=== PATIENT | female | born 1980 | race Caucasian/White ===

== ENCOUNTER 2016-12-04 18:39 | Emergency (ER) | payer OTHER ==
--- NOTE | 2016-12-04 19:08 | ED NURSING NOTES ---
Clinical Report - Nurses [facility] [address] [place] [address] 12/04/2016 18:40 Patient: CHANDANA MOFFETT TRIAGE Triage time 18:40 Dec 04 2016. Acuity: LEVEL 4. Chief Complaint: FEVER and SORE THROAT and SINUS CONGESTION and FATIGUE. 18:50 12/04/16. Alert. No acute distress. SEPSIS SCREEN: Sepsis Screen. Negative (no infection suspected/documented). DEMETRA COMA SCORE: [place] Coma Scale: 15- eyes open spontaneously (4); best verbal response- oriented x 4 (5); best motor response- obeys commands (6). --18:50 Julita Rodgers 18:50 12/04/16. BP: 136/87. HR: 114. RR: 18. O2 saturation: 98%. Temp: 99.1 F. Pain level now 8/10. --18:50 Julita Rodgers. Weight: 63.5 kg stated. Height/Length: 67 inches Per Patient. BMI: 21.9. --18:47 Julita Rodgers. Medications None. --18:47 Julita Rodgers. Medication/allergy information source: the patient. --18:50 Julita Rodgers. Allergies None. --18:47 Julita Rodgers. History Arrived by private vehicle. Historian: patient. Accompanied by family. Primary physician (Annette). ( Pt reports sore throat, fever, headache, and difficulty breathing (yesterday not today).). She has had chest congestion, chills, fatigue, sinus pain and a headache. She has had abdominal pain. The pain is described as generalized. No vomiting or diarrhea. No known contact with a sick individual. 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 PAST MEDICAL HX: No history of pneumonia, asthma, chronic obstructive pulmonary disease or diabetes mellitus. No history of immunocompromise or cancer. Immunizations: up-to-date. Last normal menstrual period was 2 weeks ago. SOCIAL HX: Never smoker. Occasional alcohol use. No drug use. No recent travel. FALL RISK ASSESSMENT: Fall risk assessment completed. No fall risk identified. NUTRITIONAL RISK ASSESSMENT: The nutritional risk assessment revealed no deficiencies. FUNCTIONAL ASSESSMENT: Functional assessment: no impairments noted. LEARNING NEEDS ASSESSMENT: The learning needs assessment revealed no barriers. SKIN INTEGRITY ASSESSMENT: Skin integrity risk assessment completed. No skin integrity risk identified. --18:50 Julita Rodgers. PROBLEMS: Skin Avulsion. Costochondritis. --18:48 Julita Rodgers. ADDITIONAL SURGERIES: Breast Augmentation. Vaginal cyst removal. --18:48 Julita Rodgers. Assessment The patient states feels the same. --18:50 Julita Rodgers. Interventions ID band on patient. --18:50 Julita Rodgers. PHYSICAL ASSESSMENT 18:50 12/04/16. Ambulatory to room. Patient gowned. GENERAL / NEURO / PSYCH: Alert. Oriented X 4. Appears in no acute distress. HEENT: Pupils equal, round and reactive to light. Mucous membranes are pink. RESPIRATORY: Respirations not labored. Chest nontender. CVS: Capillary refill less than 2 seconds. Pulses within normal limits. GI / : Abdomen soft and nontender. SKIN: Skin intact. Skin is warm and dry. Normal skin turgor. --18:50 Julita Rodgers. NURSING PROGRESS NOTES 18:50 12/04/16. The plan of care for this patient has been created. Head of bed elevated. Reassurance given. Two patient identifiers checked. Call light placed in reach. Side rails up x 1. Bed placed in lowest position. Brakes of bed on. Patient ready for evaluation- chart flagged and ED physician and NURSE OB notified. --18:50 Julita Rodgers. DISPOSITION / DISCHARGE 19:17 12/04/16. Departure time: :Dec 04 2016. Condition at departure: unchanged. The goals identified in the patient's plan of care were met. No learning barriers present. Discharge instructions provided and reviewed with the patient. Reviewed warnings (Patient verbalized awareness of warning s/sx listed in dc paperwork.). Reviewed medication(s). Prescription(s) given to the patient (Tylenol, ibuprofen.). Treatments reviewed. Reviewed referral to a primary care physician for followup. Patient verbalized understanding. Written instructions provided in French. The patient was discharged by the nurse practitioner. She was discharged home and accompanied by family. She left the Emergency Department ambulatory and via private vehicle. Family member driving. FALL RISK ASSESSMENT: Fall risk assessment completed. No fall risk identified. --19:17 Julita Rodgers 19:15 12/04/16. BP: deferred. HR: deferred. RR: deferred. O2 saturation: deferred. Temp: deferred. Pain level now deferred. --19:17 Julita Rodgers. Locked/Released at 12/04/2016 23:00 by Julita Rodgers,
--- NOTE | 2016-12-04 19:08 | ED NURSING NOTES ---
Clinical Report - Nurses [facility] [address] [place] [address] 12/04/2016 18:40 Patient: CHANDANA MOFFETT TRIAGE Triage time 18:40 Dec 04 2016. Acuity: LEVEL 4. Chief Complaint: FEVER and SORE THROAT and SINUS CONGESTION and FATIGUE. 18:50 12/04/16. Alert. No acute distress. SEPSIS SCREEN: Sepsis Screen. Negative (no infection suspected/documented). DEMETRA COMA SCORE: [place] Coma Scale: 15- eyes open spontaneously (4); best verbal response- oriented x 4 (5); best motor response- obeys commands (6). --18:50 Julita Rodgers 18:50 12/04/16. BP: 136/87. HR: 114. RR: 18. O2 saturation: 98%. Temp: 99.1 F. Pain level now 8/10. --18:50 Julita Rodgers. Weight: 63.5 kg stated. Height/Length: 67 inches Per Patient. BMI: 21.9. --18:47 Julita Rodgers. Medications None. --18:47 Julita Rodgers. Medication/allergy information source: the patient. --18:50 Julita Rodgers. Allergies None. --18:47 Julita Rodgers. History Arrived by private vehicle. Historian: patient. Accompanied by family. Primary physician (Annette). ( Pt reports sore throat, fever, headache, and difficulty breathing (yesterday not today).). She has had chest congestion, chills, fatigue, sinus pain and a headache. She has had abdominal pain. The pain is described as generalized. No vomiting or diarrhea. No known contact with a sick individual. 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 PAST MEDICAL HX: No history of pneumonia, asthma, chronic obstructive pulmonary disease or diabetes mellitus. No history of immunocompromise or cancer. Immunizations: up-to-date. Last normal menstrual period was 2 weeks ago. SOCIAL HX: Never smoker. Occasional alcohol use. No drug use. No recent travel. FALL RISK ASSESSMENT: Fall risk assessment completed. No fall risk identified. NUTRITIONAL RISK ASSESSMENT: The nutritional risk assessment revealed no deficiencies. FUNCTIONAL ASSESSMENT: Functional assessment: no impairments noted. LEARNING NEEDS ASSESSMENT: The learning needs assessment revealed no barriers. SKIN INTEGRITY ASSESSMENT: Skin integrity risk assessment completed. No skin integrity risk identified. --18:50 Julita Rodgers. PROBLEMS: Skin Avulsion. Costochondritis. --18:48 Julita Rodgers. ADDITIONAL SURGERIES: Breast Augmentation. Vaginal cyst removal. --18:48 Julita Rodgers. Assessment The patient states feels the same. --18:50 Julita Rodgers. Interventions ID band on patient. --18:50 Julita Rodgers. PHYSICAL ASSESSMENT 18:50 12/04/16. Ambulatory to room. Patient gowned. GENERAL / NEURO / PSYCH: Alert. Oriented X 4. Appears in no acute distress. HEENT: Pupils equal, round and reactive to light. Mucous membranes are pink. RESPIRATORY: Respirations not labored. Chest nontender. CVS: Capillary refill less than 2 seconds. Pulses within normal limits. GI / : Abdomen soft and nontender. SKIN: Skin intact. Skin is warm and dry. Normal skin turgor. --18:50 Julita Rodgers. NURSING PROGRESS NOTES 18:50 12/04/16. The plan of care for this patient has been created. Head of bed elevated. Reassurance given. Two patient identifiers checked. Call light placed in reach. Side rails up x 1. Bed placed in lowest position. Brakes of bed on. Patient ready for evaluation- chart flagged and ED physician and MUSIC LIBRARY ASSISTANT notified. --18:50 Julita Rodgers. DISPOSITION / DISCHARGE 19:17 12/04/16. Departure time: :Dec 04 2016. Condition at departure: unchanged. The goals identified in the patient's plan of care were met. No learning barriers present. Discharge instructions provided and reviewed with the patient. Reviewed warnings (Patient verbalized awareness of warning s/sx listed in dc paperwork.). Reviewed medication(s). Prescription(s) given to the patient (Tylenol, ibuprofen.). Treatments reviewed. Reviewed referral to a primary care physician for followup. Patient verbalized understanding. Written instructions provided in Ukrainian. The patient was discharged by the nurse practitioner. She was discharged home and accompanied by family. She left the Emergency Department ambulatory and via private vehicle. Family member driving. FALL RISK ASSESSMENT: Fall risk assessment completed. No fall risk identified. --19:17 Julita Rodgers 19:15 12/04/16. BP: deferred. HR: deferred. RR: deferred. O2 saturation: deferred. Temp: deferred. Pain level now deferred. --19:17 Julita Rodgers. Locked/Released at 12/04/2016 23:00 by Julita Rodgers,
--- NOTE | 2016-12-04 19:08 | ED CLINICAL REPORT ---
Clinical Report - Physicians/Mid Levels [facility] [address] [place] [address] 12/04/2016 18:40 Patient: CHANDANA MOFFETT Time Seen: 18:56; initial patient contact, initial documentation, patient care assumed. Arrived- By private vehicle. Historian- patient. HISTORY OF PRESENT ILLNESS Chief Complaint: SORE THROAT and FEVER. This started last night and is still present. It was abrupt in onset and has been constant. The illness is described as moderate. The patient has had a cough, a sore throat, nasal congestion, sinus pressure and sinus drainage. She has had fever of 101 F and muscle aches. No sputum production, difficulty breathing, chest discomfort or pain or nasal discharge. No ear pain. Additional history - No known contact with a sick individual. No recent travel. Similar symptoms previously: None. Recent medical care: Not recently seen/assessed. REVIEW OF SYSTEMS The patient has had a headache. No vomiting or diarrhea. All systems otherwise negative, except as recorded above. PAST HISTORY See nurses notes. PROBLEMS: Skin Avulsion. Costochondritis. --18:48 Julita Rodgers. ADDITIONAL SURGERIES: Breast Augmentation. Vaginal cyst removal. --18:48 Julita Rodgers. SOCIAL HISTORY Never smoker. Occasional alcohol use. Not exposed to second-hand smoke at home. No drug use. No recent travel. Is a local resident. FAMILY HISTORY Negative. ADDITIONAL NOTES The nursing notes have been reviewed with agreement regarding the chief complaint, HPI, ROS, PMH and patient medications and allergies. PHYSICAL EXAM Vital Signs: 12/04/2016 18:50 BP: 136/87. HR: 114. RR: 18. O2 saturation: 98%. Temp: 99.1 F. Have been reviewed as abnormal and appear to be correct. Blood pressure normal. Tachycardic. Respiratory rate normal. Temperature normal. Oxygen saturation normal. Appearance: Alert. No acute distress. Eyes: Pupils equal, round and reactive to light. Eyes normal inspection. ENT: Ears normal. Nose normal. Pharynx normal. Uvula midline. Neck: Normal inspection. Neck supple. CVS: Heart rate / rhythm abnormal. Tachycardia (ventricular rate = 110). Heart sounds normal. Pulses normal. Respiratory: No respiratory distress. Breath sounds normal. Back: Normal inspection. Skin: Skin warm and dry. Normal skin color. No rash. Normal skin turgor. Extremities: Extremities exhibit normal ROM. No lower extremity edema. Neuro: Oriented X 3. No motor deficit. No sensory deficit. PROGRESS AND PROCEDURES Patient counseled in person regarding the patient's stable condition and diagnosis. Differential Diagnosis: Other possible considerations: flu, viral illness, uri, sinusitis, bronchitis, pneumonia. Above considerations are based on history and physical exam. Differential diagnosis was discussed with patient. Disposition: Discharged home in good and unchanged condition (19:08). Condition: good and stable. CLINICAL IMPRESSION Acute viral rhinitis. No airway obstruction. INSTRUCTIONS Alternate Tylenol (Acetaminophen) and Motrin (Ibuprofen) for fever, temperature greater than 101 degrees orally. Take according to label instructions. Drink plenty of fluids for the next 24 hours. Warnings: GENERAL WARNINGS: Return or contact your physician immediately if your condition worsens or changes unexpectedly, if not improving as expected, or if other problems arise. Specifically return if problem worsens. Follow-up: Follow up with your doctor in about three days as needed. Call for an appointment. Summary of care provided to patient. Understanding of the discharge instructions verbalized by patient. (Electronically signed by Annalisa Andrade A.R.N.P. 12/04/2016 20:18)
--- NOTE | 2016-12-04 23:00 | ED MAR SUMMARY ---
..... Medication Administration Record [facility] [address], [place] [id number] Patient: CHANDANA MOFFETT Visit ID: [id number] 36y, F Weight: 63.5 kg Height/Length: 67 in BMI: 21.9 ALLERGIES: None
--- NOTE | 2016-12-04 23:00 | ED DISCHARGE INSTRUCTIONS ---
Patient: CHANDANA MOFFETT General Instructions [facility] VisitID: [id number] [place] [address] 36y, F Registration Date/Time: 12/04/2016 Acute viral rhinitis. No airway obstruction. INSTRUCTIONS Alternate Tylenol (Acetaminophen) and Motrin (Ibuprofen) for fever, temperature greater than 101 degrees orally. Take according to label instructions. Drink plenty of fluids for the next 24 hours. Warnings: GENERAL WARNINGS: Return or contact your physician immediately if your condition worsens or changes unexpectedly, if not improving as expected, or if other problems arise. Specifically return if problem worsens. Follow-up: Follow up with your doctor in about three days as needed. Call for an appointment. Summary of care provided to patient. Understanding of the discharge instructions verbalized by patient. ADDITIONAL INFORMATION Viral Respiratory Illness [Adult] You have an Upper Respiratory Illness (URI) caused by a virus. This illness is contagious during the first few days. It is spread through the air by coughing and sneezing or by direct contact (touching the sick person and then touching your own eyes, nose or mouth). Most viral illnesses go away within 7-10 days with rest and simple home remedies. Sometimes, the illness may last for several weeks. Antibiotics will not kill a virus and are generally not prescribed for this condition. Home Care: 1) If symptoms are severe, rest at home for the first 2-3 days. When you resume activity, don't let yourself get too tired. 2) Avoid being exposed to cigarette smoke (yours or others). 3) Tylenol (acetaminophen) or ibuprofen (Advil, Motrin) will help fever, muscle aching and headache. (Persons under 18 with fever should not take aspirin since this may cause liver damage.) 4) Your appetite may be poor, so a light diet is fine. Avoid dehydration by drinking 6-8 glasses of fluids per day (water, soft drinks, juices, tea, soup). Extra fluids will help loosen secretions in the nose and lungs. 5) [id number] cold medicines will not shorten the length of time youre sick, but they may be helpful for the following symptoms: cough (Robitussin DM); sore throat (Chloraseptic lozenges or spray); nasal and sinus congestion (Actifed, Sudafed, Chlortrimeton). Follow Up with your doctor or as advised if you dont improve over the next week. Get Prompt Medical Attention if any of the following occur: -- Cough with lots of colored sputum (mucus) or blood in your sputum -- Chest pain, shortness of breath, wheezing or have trouble breathing -- Severe headache; face, neck or ear pain -- Fever over 100.4 F (38.0 C) for more than three days -- You cant swallow due to throat pain Fever Control (Adult) A fever is a natural reaction of the body to an illness. In most cases, the temperature itself is not harmful. It actually helps the body fight infections. A fever does not need to be treated unless you feel very uncomfortable. Home Care If you feel warm, check your temperature. If you feel very uncomfortable and your temperature is at or higher than 100.4F (38C) oral, you may take acetaminophen (Tylenol) every 4 to 6 hours. If you cant take or keep down oral medicine, ask your pharmacist for Tylenol suppositories, which you can get without a prescription. If the fever does not respond to acetaminophen within 1 hour, take ibuprofen (Advil or Motrin). If this works, keep taking the ibuprofen every 6 to 8 hours. Note: If you have chronic liver or kidney disease or ever had a stomach ulcer or GI bleeding, talk with your doctor before using these medications. If either medication alone does not keep the fever down, you may alternate the two medicines every 3 to 4 hours, only if your healthcare provider has instructed you to do so. For example, take Motrin then wait 3 hours, take Tylenol then wait 3 hours, take Motrin, and so on. Follow your healthcare providers instructions exactly. Clothing: Keep clothing light because excess body heat is lost through the skin. The fever will go up if you wear extra layers or wrap in blankets. Fluids: Fever causes the body to lose water through evaporation. Drink plenty of fluids such as water, juice, clear sodas, nancy whitley, or lemonade. Do not use aspirin in anyone under 18 years of age who is ill with a fever. It can cause severe liver damage. Follow Up with your doctor or as advised by our staff if you do not get better after 48 hours. Get Prompt Medical Attention if any of the following occur: Fever does not get better after taking fever medication Fast or difficult breathing Earache, sinus pain, stiff or painful neck, headache, repeated diarrhea or vomiting You feel unusually irritable, drowsy, or confused A rash appears You feel weak or dizzy, or that you might faint You have been given the following additional information: Uri, Viral, No Abx (Adult) Fever Control (Adult) (Electronically signed by Annalisa Andrade A.R.N.P. 12/04/2016 20:18)
--- NOTE | 2016-12-04 23:00 | ED MED RECONCILIATION SUMMARY ---
Patient: CHANDANA MOFFETT Medication Reconciliation Report [facility] VisitID: [id number] [address] [place] [address] 36y, F Registration Date/Time: 12/04/2016 Weight: 63.5 kg Height/Length: 67 in. BMI: 21.9 ALLERGIES: None The patient's Home Medications are listed below: NONE. The source(s) of the original Home Medication information: patient The following Medications were given to the patient in the Emergency Department: None. The following Medications were prescribed to the patient: None.
--- NOTE | 2016-12-04 23:00 | ED MED RECONCILIATION SUMMARY ---
Patient: CHANDANA MOFFETT Medication Reconciliation Report [facility] VisitID: [id number] [address] [place] [address] 36y, F Registration Date/Time: 12/04/2016 Weight: 63.5 kg Height/Length: 67 in. BMI: 21.9 ALLERGIES: None The patient's Home Medications are listed below: NONE. The source(s) of the original Home Medication information: patient The following Medications were given to the patient in the Emergency Department: None. The following Medications were prescribed to the patient: None.
--- NOTE | 2016-12-04 23:00 | ED MAR SUMMARY ---
..... Medication Administration Record [facility] [address] [place] [id number] Patient: CHANDANA MOFFETT Visit ID: [id number] 36y, F Weight: 63.5 kg Height/Length: 67 in BMI: 21.9 ALLERGIES: None
== END 2016-12-04 19:17 | disposition home or self-care (01) ==
LOC: ED SRH 18:39
DX: J00 Acute nasopharyngitis [common cold] (principal)